=== PATIENT | female | born 1995 | race Caucasian/White ===

== ENCOUNTER 2020-02-23 13:45 | Emergency (ER) | payer OTHER ==
[~2020-02-23] VITALS: Ht 154.9 cm; Wt 76.3 kg
[2020-02-23 14:28] LABS: BASO % 0.5 % (0.0-1.0); EOS # 0.1 10^3/uL (0.0-0.5); EOS % 1.5 % (0.0-3.0); HEMATOCRIT 40.8 % (36.0-47.0); HEMOGLOBIN 13.7 g/dl (12.0-15.5); LYMPH # 1.7 10^3/uL (1.5-5.0); LYMPH % 27.6 % (24.0-44.0); MEAN CORPUSCULAR HGB CONC 33.6 g/dl (32.0-36.5); MEAN CORPUSCULAR VOLUME 86.4 fl (80.0-96.0); MONO # 0.5 10^3/uL (0.0-0.8); MONO % 7.6 % (0.0-5.0); NEUTROPHILS # 3.9 10^3/uL (1.5-8.5); NEUTROPHILS % 62.6 % (36.0-66.0); PLATELET COUNT, AUTOMATED 366 10^3/uL (150-450); RED BLOOD COUNT 4.72 10^6/uL (4.00-5.40); WHITE BLOOD COUNT 6.2 10^3/uL (4.0-10.0)
[2020-02-23 14:52] LABS: BLOOD UREA NITROGEN 9 MG/DL (7-18); CALCIUM LEVEL 9.2 MG/DL (8.5-10.1); CARBON DIOXIDE LEVEL 27 MEQ/L (21-32); CHLORIDE LEVEL 107 MEQ/L (98-107); GLOMERULAR FILTRATION RATE > 60.0 (>60); GLUCOSE, FASTING 92 MG/DL (70-100); HCG, SERUM QUANTITATIVE 11 MIU/ML; POTASSIUM SERUM 4.2 MEQ/L (3.5-5.1); SODIUM LEVEL 139 MEQ/L (136-145)
--- NOTE | 2020-02-23 16:09 | REPVR ---
PROCEDURE INFORMATION: Exam: US First Trimester, Transabdominal and US , Transvaginal Exam date and time: 02/23/2020 3:03 PM Age: 24 years old Clinical indication: Lmp or gestational age (in weeks): 5 weeks 5 days; Other: Vaginal bleeding; ; Additional info: Vaginal bleeding, 5 weeks TECHNIQUE: Imaging protocol: Real-time transabdominal obstetrical ultrasound of the maternal pelvis and a first trimester , less than 14 weeks 0 days, with image documentation. Transvaginal imaging was used for better evaluation of the fetus and adnexa. COMPARISON: No relevant prior studies available. FINDINGS: Gestation: No gestational sac is seen within the uterus. On 1 sagittal view series once image 27 there appears to be a cystic structure in the cervix measuring 7 x 4 mm which could potentially represent a gestational sac or in of both the in cyst. BIOMETRY: Gestational age (AUA): No gestational sac is visualized in the uterus. MATERNAL: Uterus: Uterus measures 9.3 x 3.8 by 5.1 cm. The endometrium measures 7.8 mm in width transabdominal and 1.4 cm transvaginally. Cervix: See "Gestation" finding. Right adnexa: Right ovary measures 3.7 x 2.4 x 2.4 cm. There may be a hemorrhagic cyst or other abnormality measuring 2.1 x 1.4 x 1.1 cm. There appears to be blood flow in the periphery therefore this may represent a corpus luteum. Blood flow is detected in the right ovary. Left adnexa: Left ovary measures 3.9 x 1.5 x 7.3 mm. Follicles are seen. Blood flow is detected. There is a small amount of adjacent free fluid. Intraperitoneal space: Small amount of free fluid in the cul-de-sac. IMPRESSION: 1. The endometrium appears thickened at 1.4 cm in width. It is relatively homogeneous and no gestational sac is apparent. The lack of gestational sac could be due to early gestational age, spontaneous or ectopic . 2. On 1 sagittal view of the cervix there appears to be a cystic structure measuring 4 x 7 mm which could represent a gestational sac or a nabothian cyst. 3. Minimal free fluid in the cul-de-sac and left adnexa. Electronically signed by: Robyn Baez On 02/23/2020 16:08:54 PM
[2020-02-23 17:11] VITALS: BP 117/73
[2020-02-23 17:16] LABS: CHLAMYDIA DNA AMPLIFICATION NEGATIVE (NEGATIVE); GC DNA AMPLIFICATION NEGATIVE (NEGATIVE)
[2020-02-24 10:07] LABS: HEPATITIS B SURFACE ANTIBODY NEGATIVE (POSITIVE); HEPATITIS B SURFACE ANTIGEN NEGATIVE (NEGATIVE); HEPATITIS C VIRUS ABY INDEX 0.1 INDEX (<0.8); HIV 1&2 SCREEN CENTAUR NEGATIVE (NEGATIVE)
[2020-02-27 09:11] LABS: HSV-1 DNA Negative (Negative); HSV-2 DNA Negative (Negative)
== END 2020-02-23 17:12 | disposition home or self-care (01) ==
LOC: M ED 13:45
DX: O36.80X0 Pregnancy with inconclusive fetal viability, not applicable or unspecified (principal); O26.851 Spotting complicating pregnancy, first trimester; Z87.59 Personal history of other complications of pregnancy, childbirth and the puerperium; Z3A.01 Less than 8 weeks gestation of pregnancy

== ENCOUNTER → 2020-02-25 | Outpatient (CLI) | payer OTHER | LOC: M LAB 08:01 | PROVIDERS: ATTEND Physician Assistant | DX: Z32.00 Encounter for pregnancy test, result unknown (principal) ==

== ENCOUNTER 2020-04-15 20:29 | Emergency (ER) | payer OTHER ==
[~2020-04-15] VITALS: Ht 154.9 cm; Wt 77.3 kg
[2020-04-15 20:44] VITALS: BP 107/77
[2020-04-15] MEDS ORDERED: PERCOCET 5MG/325MG TAB PO ONE (21:45)
--- NOTE | 2020-04-15 22:08 | REPVR ---
PROCEDURE INFORMATION: Exam: XR Ribs with PA Chest, 4 Views Exam date and time: 04/15/2020 8:49 PM Age: 24 years old Clinical indication: Injury or trauma; Fall; Rib area, left side; Blunt trauma TECHNIQUE: Imaging protocol: XR bilateral ribs 4 views with PA chest. COMPARISON: No relevant prior studies available. FINDINGS: Lungs: Mild atelectasis in the left lower lobe. . Lungs are otherwise clear. Pleural space: Unremarkable. No pleural effusion. No pneumothorax. Heart/Mediastinum: Unremarkable. No cardiomegaly. Bones/joints: Nondisplaced fractures of the left 6th, 7th, and 8th ribs. IMPRESSION: Left 6th, 7th, and 8th rib fractures. No pneumothorax. Electronically signed by: Darrell Lopez On 04/15/2020 22:08:42 PM
[2020-04-15] MEDS ORDERED: PERC5TAB12 PO (22:39)
[2020-04-16] MEDS ORDERED: PERC5TAB12 PO (01:37)
[2020-04-23] MEDS ORDERED: IBUP-1114 PO (17:00)
== END 2020-04-15 23:07 | disposition home or self-care (01) ==
LOC: M ED 20:29
DX: S22.42XA Multiple fractures of ribs, left side, initial encounter for closed fracture (principal); W22.8XXA Striking against or struck by other objects, initial encounter; Y93.23 Activity, snow (alpine) (downhill) skiing, snowboarding, sledding, tobogganing and snow tubing; R06.02 Shortness of breath; M54.5 Low back pain; R11.0 Nausea

== ENCOUNTER → 2020-07-14 | Outpatient (CLI) | payer OTHER ==
[~2020-07-14] MED LIST: IBUP-1114 PO; PERC5TAB12 PO
--- NOTE | 2020-07-14 18:18 | REPVR ---
PROCEDURE INFORMATION: Exam: MR Angiogram Head Without Contrast, Arteries Exam date and time: 07/14/2020 5:06 PM Age: 24 years old Clinical indication: Pain; Headache; Additional info: Headache, unspecified TECHNIQUE: Imaging protocol: MR angiogram head without contrast. Exam focused on the arteries. COMPARISON: No relevant prior studies available. FINDINGS: ANTERIOR CIRCULATION: Right internal carotid artery: Intracranial segment is patent with no significant stenosis. No aneurysm. Right middle cerebral artery: No occlusion or significant stenosis. No aneurysm. Right anterior cerebral artery: No occlusion or significant stenosis. No aneurysm. Left internal carotid artery: Intracranial segment is patent with no significant stenosis. No aneurysm. Left middle cerebral artery: No occlusion or significant stenosis. No aneurysm. Left anterior cerebral artery: No occlusion or significant stenosis. No aneurysm. POSTERIOR CIRCULATION: Right vertebral artery: Dominant right vertebral artery. Unremarkable. Left vertebral artery: No occlusion or significant stenosis. No aneurysm. Basilar artery: No occlusion or significant stenosis. No aneurysm. Right posterior cerebral artery: No occlusion or significant stenosis. No aneurysm. Left posterior cerebral artery: No occlusion or significant stenosis. No aneurysm. IMPRESSION: Unremarkable exam. Electronically signed by: Devin Bruno On 07/14/2020 18:19:07 PM
--- NOTE | 2020-07-15 03:52 | REPVR ---
PROCEDURE INFORMATION: Exam: MR Head Without Contrast Exam date and time: 07/14/2020 5:06 PM Age: 24 years old Clinical indication: Pain; Headache not specified; Additional info: Headache, unspecified TECHNIQUE: Imaging protocol: MR of the head without contrast. COMPARISON: No relevant prior studies available. FINDINGS: Limitations: Motion artifact limits this study. Brain: No restricted diffusion within the brain to suggest an acute infarct. There is a tiny focus of increased diffusion signal intensity at the junction of the medulla with the upper cervical spinal cord, without abnormal signal intensity on the remaining sequences. This is suggestive of artifact. Mild increased FLAIR signal intensity is identified involving the medial left temporal cortex and inferior left occipital lobe. This can be contributed by artifact, although encephalitis and nonspecific gliosis are within the differential. No magnetic susceptibility intracerebral blood products/hemosiderin visualized. No midline shift. Cerebral ventricles: No ventriculomegaly. Bones/joints: Unremarkable, as visualized. Paranasal sinuses: Mucosal thickening/effusion within a right anterior ethmoid air cell. Mastoid air cells: No mastoid effusion. Orbital cavity: Unremarkable. Soft tissues: Unremarkable, as visualized. IMPRESSION: 1. No acute infarct. 2. Mild increased FLAIR signal intensity is identified involving the medial left temporal cortex and inferior left occipital lobe. This is suggestive of nonspecific gliosis or mild edema. Encephalitis and status epilepticus are within the differential, although this is a nonspecific finding. Clinical correlation and postcontrast MRI imaging are recommended. 3. Additional findings described above. Electronically signed by: Ronn Hernandez On 07/15/2020 03:53:01 AM
== END ==
LOC: M RAD 16:01
PROVIDERS: ATTEND Physician Assistant
DX: R90.89 Other abnormal findings on diagnostic imaging of central nervous system (principal); R51.9 Headache, unspecified

== ENCOUNTER → 2020-07-27 | Outpatient (CLI) | payer OTHER ==
[2020-07-27 09:54] LABS: BASO % 0.5 % (0.0-1.0); EOS # 0.1 10^3/uL (0.0-0.5); EOS % 1.5 % (0.0-3.0); HEMATOCRIT 43.2 % (36.0-47.0); HEMOGLOBIN 15.1 g/dl (12.0-15.5); LYMPH # 2.1 10^3/uL (1.5-5.0); LYMPH % 31.8 % (24.0-44.0); MEAN CORPUSCULAR HEMOGLOBIN 30.4 pg (27.0-33.0); MEAN CORPUSCULAR VOLUME 87.1 fl (80.0-96.0); MONO # 0.5 10^3/uL (0.0-0.8); MONO % 7.5 % (2.0-8.0); NEUTROPHILS # 3.8 10^3/uL (1.5-8.5); NEUTROPHILS % 58.4 % (36.0-66.0); PLATELET COUNT, AUTOMATED 354 10^3/uL (150-450); RED BLOOD COUNT 4.96 10^6/uL (4.00-5.40); WHITE BLOOD COUNT 6.5 10^3/uL (4.0-10.0)
[2020-07-27 10:15] LABS: ERYTHROCYTE SEDIMENTATION RATE 1 mm/hr (0-20)
[2020-07-27 10:42] LABS: ALBUMIN 4.1 GM/DL (3.2-5.2); ALT/SGPT 32 U/L (12-78); BILIRUBIN,TOTAL 0.5 MG/DL (0.2-1.0); BLOOD UREA NITROGEN 10 MG/DL (7-18); CARBON DIOXIDE LEVEL 25 MEQ/L (21-32); CHLORIDE LEVEL 108 MEQ/L (98-107); CREATININE FOR GFR 0.79 MG/DL (0.55-1.30); FREE T4 0.86 NG/DL (0.76-1.46); GLOMERULAR FILTRATION RATE > 60.0 (>60); GLUCOSE, FASTING 80 MG/DL (70-100); POTASSIUM SERUM 4.2 MEQ/L (3.5-5.1); SODIUM LEVEL 138 MEQ/L (136-145); TOTAL PROTEIN 7.2 GM/DL (6.4-8.2)
[2020-07-29 00:07] LABS: ANA (HEP2) Negative (.); Lyme Disease IgG/IgM Antibodie <0.91 ISR (0.00-0.90); Lyme Disease IgM Ab Quantitati <0.80 index (0.00-0.79); ROCKY MTN SPOTTED FEVER IgM 0.21 index (0.00-0.89)
== END ==
LOC: M LAB 09:17
PROVIDERS: ATTEND Physician Assistant
DX: R51.9 Headache, unspecified (principal)